=== PATIENT | male | born 1950 | race Caucasian/White ===

== ENCOUNTER → 2018-05-19 | Outpatient (CLI) | payer MEDICARE, BC | LOC: COL.VAS 14:49 | DX: Z01.810 Encounter for preprocedural cardiovascular examination (principal); I51.7 Cardiomegaly ==

== ENCOUNTER 2018-07-09 08:00 | Outpatient (RCR) | payer MEDICARE, BC | END 2018-09-02 | disposition home or self-care (01) | LOC: MKS.ESL.PT | DX: Z47.1 Aftercare following joint replacement surgery (principal); Z96.642 Presence of left artificial hip joint | CPT/HCPCS: G8978-GP; G8979-GP ==

== ENCOUNTER 2022-02-26 08:00 | Outpatient (RCR) | payer MEDICARE, OTHER | END 2022-03-13 | disposition home or self-care (01) | LOC: MKS.ESL.PT | DX: M25.551 Pain in right hip (principal); Z96.641 Presence of right artificial hip joint ==

== ENCOUNTER → 2022-03-15 15:39 | Outpatient (RCR) | payer MEDICARE, OTHER | END | disposition home or self-care (01) | LOC: MKS.ESL.PT 02-11 14:45 | DX: M16.11 Unilateral primary osteoarthritis, right hip (principal) ==

== ENCOUNTER 2022-03-15 15:40 | Outpatient (RCR) | payer MEDICARE, OTHER | END 2022-03-15 15:41 | disposition home or self-care (01) | LOC: MKS.ESL.PT 15:40 | DX: M25.551 Pain in right hip (principal); Z96.641 Presence of right artificial hip joint ==